=== PATIENT | male | born 1990 | race African-American/Black ===

== ENCOUNTER 2018-04-29 15:17 | Emergency (ER) | payer OTHER ==
[~2018-04-29] VITALS: Ht 177.8 cm; Wt 127.6 kg
[~2018-04-29 15:17] MED LIST: NAPROSYN500 MG PO; NORCO 5-325 TA1 EAC1 PO; NORCO 5-325 TA1 EACH PO; PREDNISONE50 MG PO; PROAIR HFA8.5 GM INH; PROMETHAZINE/C118 ML PO; ULTRAM 50MG TAB50 MG PO; XANAX XR1 MG
[2018-04-29] MEDS ORDERED: SEROQUEL 50 MG50 MG PO (15:30)
[2018-04-29 15:57] LABS: ABSOLUTE BASOPHILS 0.1 thou/uL (0.0-0.2); ABSOLUTE LYMPHOCYTES 1.7 thou/uL (0.8-5.3); ABSOLUTE MONOCYTES 0.6 thou/uL (0.0-1.2); ABSOLUTE NEUTROPHILS 6.5 thou/uL (1.6-8.1); BASOPHILS 0.8 %; EOSINOPHILS 0.5 %; HEMATOCRIT 53.8 % (42.0-52.0); HEMOGLOBIN 17.4 gm/dL (14.0-18.0); LYMPHOCYTES 19.3 %; MCH 29.4 pg (26.0-34.0); MCHC 32.3 g/dL (28.0-37.0); MCV 91.1 fL (80.0-100.0); MONOCYTES 6.9 %; NUCLEATED RBCS 0 /100WBC; PLATELET COUNT* 321 thou/uL (150-400); POLYS 72.5 %; RDW-CV 13.2 % (10.5-14.5)
[2018-04-29 16:07] LABS: INR 3.4; PROTIME 32.3 Seconds (9.20-11.50)
[2018-04-29 18:15] VITALS: BP 143/72
--- NOTE | 2018-04-30 11:31 | EKG ---
[place] [address] ELECTROCARDIOGRAM REPORT Name: WARD MOON Room: [facility]#: [id number] Admission: 04/29/18 Attend Phys: Discharge: 04/29/18 Date of : [birth year] Report #: [id number] THIS REPORT FOR: //name// [facility] ED Test Date: 2018-04-29 Test Time: 16:11:20 Pat Name: WARD MOON Department: Room: Gender: Photo Journalist: Mckinley CORTÉS : 1990 Requested By: Michael Mendoza Order Number: [id number] MD: Truman Escobedo Measurements Intervals [place] Rate: 103 P: 50 ND: 132 QRS: 48 QRSD: 88 T: 13 QT: 345 QTc: 452 Interpretive Statements Sinus tachycardia No previous ECG available for comparison Electronically Signed On 04-30-2018 11:31:01 CDT by Truman Escobedo [email or web address] <ELECTRONICALLY SIGNED> By: Truman Escobedo MD, [facility] 04/30/18 1131 1611 1611 Truman Escobedo MD, FACC /EPI
== END 2018-04-29 18:15 | disposition home or self-care (01) ==
LOC: M.ERS 15:17
PROVIDERS: Family Medicine
DX: T40.1X4A Poisoning by heroin, undetermined, initial encounter (principal); Y92.89 Other specified places as the place of occurrence of the external cause

== ENCOUNTER 2019-03-09 11:44 | Emergency (ER) | payer OTHER ==
[~2019-03-09] VITALS: Ht 177.8 cm; Wt 145.2 kg
[~2019-03-09 11:44] MED LIST changes: +SEROQUEL 50 MG50 MG PO
[2019-03-09] MEDS ORDERED: ZOLOFT50 MG PO (11:53)
[2019-03-09 12:20] LABS: ABSOLUTE EOSINOPHILS 0.1 thou/uL (0.0-0.7); ABSOLUTE LYMPHOCYTES 1.8 thou/uL (0.8-5.3); ABSOLUTE MONOCYTES 0.7 thou/uL (0.0-1.2); ABSOLUTE NEUTROPHILS 3.5 thou/uL (1.6-8.1); BASOPHILS 0.7 %; HEMATOCRIT 47.1 % (42.0-52.0); HEMOGLOBIN 15.5 gm/dL (14.0-18.0); LYMPHOCYTES 29.1 %; MCH 29.2 pg (26.0-34.0); MCHC 32.9 g/dL (28.0-37.0); MCV 88.6 fL (80.0-100.0); MONOCYTES 11.4 %; MPV 8.1 fl. (7.2-11.1); NUCLEATED RBCS 0 /100WBC; PLATELET COUNT* 224 thou/uL (150-400); POLYS 57.8 %; RBC 5.31 mil/uL (4.50-6.00); RDW-CV 13.9 % (10.5-14.5)
[2019-03-09 12:28] LABS: ANION GAP 11 mmol/L (7-16); BUN 16 mg/dL (7-18); CHLORIDE 101 mmol/L (98-107); CO2 25 mmol/L (21-32); CREATININE 1.6 mg/dL (0.6-1.3); GLUCOSE 124 mg/dL (70-99); POTASSIUM 3.7 mmol/L (3.5-5.1); SODIUM 137 mmol/L (136-145)
[2019-03-09 12:37] LABS: ALBUMIN 4.1 g/dL (3.4-5.0); ALKALINE PHOSPHATASE 111 U/L (46-116); SGOT 25 U/L (15-37); SGPT 41 U/L (30-65); TOTAL BILIRUBIN 0.4 mg/dL (<0.1-1.0); TOTAL PROTEIN 8.3 g/dL (6.4-8.2); TROPONIN-I LEVEL <0.06 ng/mL (<0.06)
[2019-03-09] MEDS ORDERED: ACYCLOVIR 400400 MG PO (14:48)
--- NOTE | 2019-03-09 14:51 | EKG ---
[place] [address] ELECTROCARDIOGRAM REPORT Name: WARD MOON Room: [facility]#: [id number] Admission: 03/09/19 Attend Phys: Discharge: Date of : [birth year] Report #: [id number] THIS REPORT FOR: //name// [facility] ED Test Date: 2019-03-09 Test Time: 11:46:02 Pat Name: WARD MOON Department: Room: Gender: Health Care Recruiter: Mckinley CORTÉS : 1990 Requested By: Kingsley Strickland Order Number: [id number] MD: Mendoza Rocha Measurements Intervals [place] Rate: 109 P: 30 NC: 135 QRS: 38 QRSD: 72 T: 15 QT: 316 QTc: 426 Interpretive Statements Sinus tachycardia Borderline T abnormalities, inferior leads Compared to ECG 04/29/2018 16:11:20 T-wave abnormality now present Electronically Signed On 03-09-2019 14:51:36 CDT by Mendoza Rocha [email or web address] <ELECTRONICALLY SIGNED> By: Mendoza Rocha MD, [facility] 03/09/19 1451 1146 1146 Mendoza Rocha MD, FAC /EPI
[2019-03-09 15:05] VITALS: BP 139/55
== END 2019-03-09 15:05 | disposition home or self-care (01) ==
LOC: M.ERS 11:44
PROVIDERS: Physician Assistant
DX: E86.0 Dehydration (principal); R00.2 Palpitations; F15.10 Other stimulant abuse, uncomplicated; R36.9 Urethral discharge, unspecified; R21 Rash and other nonspecific skin eruption; F17.210 Nicotine dependence, cigarettes, uncomplicated